=== PATIENT | female | born 1950 | race Hispanic/Latino ===

== ENCOUNTER 2021-07-17 22:07 | Inpatient (IN) | payer OTHER ==
--- OUTSIDE RECORDS SUMMARY | 2021-07-17 22:51 | XMS REPORT | Continuity of Care Document ---
:1950 Author Organization [facility] t Address [address] [place] [address] Dr. Fu [address] [place] [address] Care Team Providers Name Role Phone GC_SWHATBIC_Black_D Attending Clinician Unavailable GC_SWHAOMC_Black_D Attending Clinician Unavailable JOSE LUIS Attending Clinician Unavailable Ren Couch NP Attending Clinician Ren COUCH Attending Clinician Unavailable GC_SWHATBIC_Black_D Admitting Clinician Unavailable GC_SWHAOMC_Black_D Admitting Clinician Unavailable Payers Payer Name Policy Type Policy Number Effective Date Expiration Date [facility] [id number] 2011 00:00:00 Problems This patient has no known problems. Allergies, Adverse Reactions, Alerts Allergy Allergy Status Severity Reaction(s) Onset Inactive Treating Comm ents Source Name Type Date Date Clinician NO KNOWN Drug Active Univers ALLERGIE Class ity of [facility] Social History Social Habit Start Date Stop Date Quantity Comments Source Sex Assigned At Uni [facility] to SARS-CoV-2 [facility] sure [facility] Smoking Status Start Date Stop Date Source Unknown if ever smoked Universit y [facility] Medications This patient has no known medications. Procedures Procedure Date / Time Performed Performing Clinician Sourc e NOTICE OF PRIVACY 2020-01-15 05:39:54 Doctor Unassigned, No Univ [facility] NOTICE OF PRIVACY 2020-01-15 05:36:35 Doctor Unassigned, No Univ [facility] Encounters Start End Encounter Admission Attending Care Care Encounter Source Date/Time Date/Time Type Type Clinicians Facility Department ID 2021-05-06 2021-05-06 Outpatient GC_SWHATBIC PRIV PRIV [id number] [facility] 03:29:00 03:29:00 _Black_D [id number] Medic al 2021-05-05 2021-05-05 Outpatient GC_SWHAOMC_ PRIV PRIV [id number] [facility] 12:43:00 12:43:00 Black_D [id number] Medica l 2021-05-03 2021-05-03 Outpatient GC_SWHATBIC PRIV PRIV [id number] [facility] 02:06:00 02:06:00 _Black_D [id number] Medic al 2021-05-02 2021-05-02 Outpatient GC_SWHAOMC_ PRIV PRIV [id number] [facility] 12:18:00 12:18:00 Black_D [id number] Medica l 2021-04-30 2021-04-30 Outpatient GC_SWHATBIC PRIV PRIV [id number] [facility] 01:46:00 01:46:00 _Black_D [id number] Medic al 2020-01-23 2020-01-23 Outpatient JOSE LUIS, [facility] [id number] [address] [place] [address] 00:00:00 00:00:00 GERTRUDE 031 Method i 2020-01-23 2020-01-23 Outpatient JOSE LUIS [facility] [id number] [address] [place] [address] 00:00:00 00:00:00 GERTRUDE 674 Method i 2020-01-23 2020-01-23 Outpatient JOSE LUIS [facility] [id number] [address] [place] [address] 00:00:00 00:00:00 GERTRUDE [address] 2020-01-15 2020-01-15 Emergency [facility] [id number] Univers 00:56:00 01:23:00 Rodney Zuniga [id number] camilo [facility] [id number] [place] [facility] [id number] [facility] 0[address] Branch 2020-01-15 2020-01-15 Emergency X [facility] ERT [id number] Univers 00:38:00 00:38:[address] [facility] Results This patient has no known results.
[2021-07-17] MEDS ORDERED: ACETAMINOPHEN 500 MG TAB PO PRN (23:09)
[2021-07-17] MEDS ORDERED: ONDANSETRON 4 MG/2 ML VIAL IV PRN (23:09)
[2021-07-17] MEDS ORDERED: ZOLPIDEM TARTRATE 5 MG TABLET PO PRN (23:09)
[2021-07-17] MEDS ORDERED: HYDROCODONE/CHLORPHEN 5 ML/OSYR PO PRN (23:35)
[2021-07-17] MEDS ORDERED: METOPROLOL TAR 25 MG TAB PO ONE (23:37)
--- NOTE | 2021-07-17 23:40 | P.HP ---
Certification for Inpatient Patient admitted to: Observation With expected LOS: <2 Midnights Patient will require the following post-hospital care: None Practitioner: I am a practitioner with admitting privileges, knowledge of patient current condition, hospital course, and medical plan of care. Services: Services provided to patient in accordance with Admission requirements found in Title 42 Section 412.3 of the Code of Federal Regulations Patient History Date of Service: 07/17/21 Primary Care Provider: Cory (patient requested hospitalist) Reason for admission: Chest Pain History of Present Illness: Patient is a 71-year-old female with hypothyroidism, hypertension, and asthma who presented to the [facility] ED with complaints of cough and shortness of breath. She states that she has had a cough for the last 3 months, has had several Covid/flu tests that were all negative and been on several different antibiotics without resolution in symptoms. Chest x-ray was done and showed moderate pulmonary congestion without cardiopulmonary disease. CTA was normal. EKG NSR. Labs significant for troponin I of 0.1, WBC 11.1, BNP within normal limits. She was given duo nebs, 324 mg of aspirin, 100 mg of Lovenox, 40 of Lasix, 0.5 Ativan. [facility] provider requested transfer to [facility] and I accepted. Upon arrival to the floor, patient states she is feeling better after the breathing treatment and Lasix. She states that she was experiencing some chest pain at the [facility] ED. She does see a plumber helper and had a echo and stress test last summer that she states were normal. She denies a history of [place]. She states that she was recently diagnosed with hypothyroidism and started on Hansen. Plan to repeat cardiac enzymes here and monitor patient on telemetry overnight with cardiology consulting in the morning. Allergies Codeine Allergy (Uncoded 03/12/15 10:32) Unknown Home medications list reviewed: Yes - Past Medical/Surgical History Diabetic: No -: Hypertension -: Hypothyroidism -: Asthma Past Surgical History: Patient denies surgical history Psychosocial/ Personal History: Patient lives at home with her . - Family History Mother -: Diabetes, Cancer - Social History Smoking Status: Never smoker Alcohol use: No CD- Drugs: No Caffeine use: Yes Place of Residence: Home Review of Systems Respiratory: Cough, Shortness of Breath Cardiovascular: Chest Pain Physical Examination - Physical Exam General: Alert, In no apparent distress, Oriented x3, Obese HEENT: Atraumatic, PERRLA, Mucous membr. moist/pink, EOMI, Sclerae nonicteric Neck: Supple, 2+ carotid pulse no bruit, No LAD, Without JVD or thyroid abnormality Respiratory: Clear to auscultation bilaterally, Normal air movement Cardiovascular: No edema, Regular rate/rhythm, Normal S1 S2 Gastrointestinal: Normal bowel sounds, No tenderness Musculoskeletal: No tenderness Integumentary: No rashes Neurological: Normal speech, Normal strength at 5/5 x4 extr, Normal tone, Normal affect Assessment and Plan - Problems (Diagnosis) (1) Chest pain Current Visit: Yes Status: Acute Qualifiers: Chest pain type: unspecified Qualified Code(s): R07.9 - Chest pain, unspecified (2) Elevated troponin I level Current Visit: Yes Status: Acute (3) Shortness of breath Current Visit: Yes Status: Acute (4) Hypertension Current Visit: Yes Status: Acute Qualifiers: Hypertension type: primary hypertension Qualified Code(s): I10 - Essential (primary) hypertension (5) Hypothyroidism Current Visit: Yes Status: Acute Qualifiers: Hypothyroidism type: acquired Qualified Code(s): E03.9 - Hypothyroidism, unspecified - Plan -We will admit patient for observation and monitor on telemetry overnight -Troponin I at external facility was elevated at 0.1. Will repeat troponin high-sensitivity here x3 q6 hours along with CPK and CK-MB. -EKG and CTA from outside facility negative. -Patient given 324 of aspirin and 100 of Lovenox at [facility] ED. Atorvastatin and metoprolol ordered. -Echo and lipid panel ordered for the morning. Cardiology consult. N.p.o. in case of cardiac catheterization -Patient's main complaint was cough and shortness of breath. We will continue breathing treatments and antitussives as needed. -Patient has a recent diagnosis of hypothyroidism, medication could be contributing chest pain. Will check thyroid levels in the morning -Full code Discharge Plan: Home Plan to discharge in: 24 Hours - Advance Directives Does patient have a Living Will: No Does patient have a Durable POA for Healthcare: No - Code Status/Comfort Care Code Status Assessed: Yes (Full) Critical Care: No Time Spent Managing Pts Care (In Minutes): 70
[2021-07-18 00:15] LABS: Creatine Phosphokinase 46 U/L (26-192); Troponin High Sensitivity 9.4 pg/mL (<58.9)
[2021-07-18 00:24] LABS: CKMB Creatine Kinase MB < 1.0 ng/mL (1.0-3.6)
[2021-07-18] MEDS: ATORVASTATIN 40 MG TAB PO SCH ×2 (00:25→21:02)
[2021-07-18] MEDS: ZOLPIDEM TARTRATE 5 MG TABLET PO PRN ×2 (00:25→22:46)
[2021-07-18 04:11] LABS: Absolute Lymphocytes (CBC) 3.9 K/uL (0.7-4.9); Hematocrit 38.6 % (36.0-45.0); Lymphocytes % 29.7 % (15.3-44.8)
[2021-07-18 04:28] LABS: Creatine Phosphokinase 41 U/L (26-192)
[2021-07-18 04:31] LABS: CKMB Creatine Kinase MB < 1.0 ng/mL (1.0-3.6)
[2021-07-18 04:36] LABS: Bilirubin Total 0.6 mg/dL (0.2-1.0); Magnesium 1.9 mg/dL (1.8-2.4); Phosphorus 3.2 mg/dL (2.5-4.9); Potassium 3.6 mmol/L (3.5-5.1); Protein, Total 6.8 g/dL (6.4-8.2)
[2021-07-18 04:49] LABS: Thyroid Stimulating Hormone 5.46 uIU/mL (0.360-3.740)
[2021-07-18 05:33] LABS: Urine Appearance CLEAR (Clear); Urine Bilirubin NEGATIVE (Negative); Urine Blood NEGATIVE (Negative); Urine Color YELLOW (Yellow); Urine Glucose NEGATIVE (Negative); Urine Protein NEGATIVE (Negative); Urine Specific Gravity >=1.030 (1.005-1.030); Urine Urobilinogen 0.2 mg/dL (0.2-1.0); Urine pH 5.5 (5.0-7.0)
[2021-07-18 05:34] LABS: Urine Microscopic Reflex NO UMIC
[2021-07-18] MEDS: INSULIN -REGULAR HUMAN 50 UNIT/0.5 ML ML SQ SCH ×4 (07:30→21:06)
[2021-07-18] MEDS: ENOXAPARIN 40 MG/0.4 ML SQ SCH (09:46)
--- NOTE | 2021-07-18 12:40 | P.PN ---
Subjective Date of Service: 07/18/21 Primary Care Provider: Cory (patient requested hospitalist) Chief Complaint: Chest Pain Patient states she feels better today. She is still coughing intermittently and reports shortness of breath with exertion. Physical Examination - Vital Signs Temperature: 97.9 F Blood Pressure: 132/62 Pulse: 75 Respirations: 16 Pulse Ox (%): 97 - Physical Exam General: Alert, In no apparent distress, Oriented x3 HEENT: Mucous membr. moist/pink Neck: Supple, JVD not distended Respiratory: Clear to auscultation bilaterally, Normal air movement Cardiovascular: No edema, Regular rate/rhythm, Normal S1 S2 Gastrointestinal: Soft and benign, Non-distended, No tenderness Musculoskeletal: No swelling Integumentary: No rashes, No cyanosis Neurological: Normal strength at 5/5 x4 extr, Cranial nerves 3-12 intact - Studies Laboratory Data (last 24 hrs) 07/18/21 03:33: Sodium 137, Potassium 3.6, BUN 12, Creatinine 0.86, Glucose 155 H, Phosphorus 3.2, Magnesium 1.9, Total Bilirubin 0.6, AST 32, ALT 52, Alkaline Phosphatase 90, Triglycerides 166 H, Cholesterol 144, HDL Cholesterol 39 L, Cholesterol/HDL Ratio 3.69 07/18/21 03:33: WBC 13.0 H, Hgb 13.3, Hct 38.6, Plt Count 237 Assessment And Plan - Current Problems (Diagnosis) (1) Acute bronchitis Current Visit: Yes Status: Acute (2) Shortness of breath Current Visit: Yes Status: Acute (3) Reactive airway disease with acute exacerbation Current Visit: Yes Status: Acute - Plan Continue bronchodilators. Start oral prednisone Trial of IV Lasix. Echocardiogram on Tuesday No need for antibiotics at this time. Patient symptoms have not responded to multiple antibiotics. Continue other home medications.
[2021-07-18] MEDS: ALBUTEROL 2.5 MG/3 ML NEB SOL NEB PRN ×2 (13:12→20:30)
[2021-07-18] MEDS: predniSONE 20 MG TAB PO SCH (13:52)
[2021-07-18] MEDS: FUROSEMIDE 40 MG/4 ML VIAL IV SCH (13:53)
[2021-07-18 15:10] LABS: Creatine Phosphokinase 52 U/L (26-192)
[2021-07-18 15:18] LABS: CKMB Creatine Kinase MB < 1.0 ng/mL (1.0-3.6)
--- NOTE | 2021-07-18 22:51 | CON ---
Date of Consultation: 07/18/[address] Harmon on 07/17/2021. I saw the patient on 07/18/2021. Reason For Consultation: [id number] myocardial infarction. History Of Present Illness: Ms. Kulwant Robles, 71 years old, had seen Dr. Yap in [place] and had a ca theterization about a year ago, which was apparently unremarkable. At this time, she comes in with c ough, shortness of breath, chest tightness, abnormal troponin. Chest x-ray showed new onset congesti ve heart failure. The patient has improved on Lasix. She is on Singulair, Ambien, and a thyroid at home. She was on CPAP at home for sleep apnea. She denied any nausea, vomiting, diaphoresis. Has h ad PND, orthopnea. Denied any pedal edema, palpitation, fever, chills, or syncope. Past Medical History: Includes asthma, sleep apnea, and hypothyroidism. Medications: Listed earlier. Allergies: SHE IS ALLERGIC TO CODEINE. Review of Systems: Negative. Social History: Negative. Family History: Negative. Physical Examination: Vital Signs: Stable. Afebrile. HEENT: Negative. Neck: Supple with no bruit. Chest: Clear on the right. On the left, she has some rales. Cardiac: Exam revealed a regular rhythm and rate without any murmurs, gallops, or rubs. Abdomen: Benign. Extremities: Revealed trace edema. Diagnostic Data: Showed a white count of 13,000, glucose of 155. EKG is nonspecific. Chest x-ray s howed pulmonary edema. Impression And Plan: New onset congestive heart failure probably diastolic with elevated troponin co nsistent with non-ST elevation myocardial infarction. I think the patient needs to have an echocardi ogram. I think she needs to have a heart catheterization to define her coronary anatomy. The risks and the benefits of the procedure were discussed with her. She agreed to proceed. Her other problem s including sleep apnea, hypothyroidism, and asthma seem to be stable at this point. I will discuss the case further with Dr. Harmon. I think she can go home and I will set her up for an outpatient ca theterization in the next few days. MEKHI/MONIL Voice ID: [id number] Report ID: [id number]
[2021-07-18 23:05] VITALS: BMI 41.7
[2021-07-19 06:13] LABS: Absolute Lymphocytes (CBC) 3.5 K/uL (0.7-4.9); Hematocrit 38.7 % (36.0-45.0); Lymphocytes % 25.9 % (15.3-44.8); MPV 8.9 fL (7.6-11.3); RBC Red Blood Cell Count 4.22 M/uL (3.86-4.86)
[2021-07-19 06:35] LABS: Potassium 3.7 mmol/L (3.5-5.1)
[2021-07-19] MEDS: INSULIN -REGULAR HUMAN 50 UNIT/0.5 ML ML SQ SCH ×4 (07:30→21:19)
[2021-07-19] MEDS: FUROSEMIDE 40 MG/4 ML VIAL IV SCH (09:12)
[2021-07-19] MEDS: predniSONE 20 MG TAB PO SCH (09:12)
[2021-07-19] MEDS: ENOXAPARIN 40 MG/0.4 ML SQ SCH (09:13)
--- NOTE | 2021-07-19 12:50 | P.PN ---
Subjective Date of Service: 07/19/21 Primary Care Provider: Cory (patient requested hospitalist) Chief Complaint: Chest Pain Patient states she is gradually getting better She reports persistent cough and shortness of breath with exertion. Physical Examination - Vital Signs Temperature: 97.6 F Blood Pressure: 134/61 Pulse: 71 Respirations: 14 Pulse Ox (%): 95 - Physical Exam General: Alert, In no apparent distress, Oriented x3 HEENT: Mucous membr. moist/pink Neck: JVD not distended Respiratory: Normal air movement, Other (Mild bilateral crackles) Cardiovascular: No edema, Regular rate/rhythm, Normal S1 S2 Gastrointestinal: Normal bowel sounds, Soft and benign, Non-distended, No tenderness Musculoskeletal: No swelling, No tenderness Integumentary: No rashes, No erythema Neurological: Normal strength at 5/5 x4 extr - Studies Laboratory Data (last 24 hrs) 07/19/21 05:14: Sodium 139, Potassium 3.7, BUN 17, Creatinine 0.85, Glucose 148 H 07/19/21 05:14: WBC 13.6 H, Hgb 13.1, Hct 38.7, Plt Count 243 Assessment And Plan - Current Problems (Diagnosis) (1) Acute bronchitis Current Visit: Yes Status: Acute (2) Shortness of breath Current Visit: Yes Status: Acute (3) Reactive airway disease with acute exacerbation Current Visit: Yes Status: Acute - Plan Continue bronchodilators. Continue oral prednisone Continue IV Lasix. Echocardiogram on Tuesday No need for antibiotics at this time. Patient symptoms have not responded to multiple antibiotics. Continue other home medications. Activity as tolerated.
[2021-07-19] MEDS: ALBUTEROL 2.5 MG/3 ML NEB SOL NEB PRN (18:32)
[2021-07-19] MEDS: ATORVASTATIN 40 MG TAB PO SCH (21:19)
[2021-07-19] MEDS: ZOLPIDEM TARTRATE 5 MG TABLET PO PRN (21:23)
[2021-07-20 03:56] LABS: Absolute Lymphocytes (CBC) 4.7 K/uL (0.7-4.9); Hematocrit 38.7 % (36.0-45.0); Lymphocytes % 33.1 % (15.3-44.8); MPV 8.5 fL (7.6-11.3); RBC Red Blood Cell Count 4.27 M/uL (3.86-4.86)
[2021-07-20 04:23] LABS: Potassium 3.7 mmol/L (3.5-5.1)
[2021-07-20] MEDS: INSULIN -REGULAR HUMAN 50 UNIT/0.5 ML ML SQ SCH ×2 (07:30→11:30)
[2021-07-20 08:38] VITALS: TEMP 97.6
[2021-07-20] MEDS: FUROSEMIDE 40 MG/4 ML VIAL IV SCH (09:00)
[2021-07-20] MEDS: ENOXAPARIN 40 MG/0.4 ML SQ SCH (09:00)
[2021-07-20] MEDS: predniSONE 20 MG TAB PO SCH (09:00)
[2021-07-20] MEDS ORDERED: LIDOCAINE 1% 20 ML MDV ONE ×2 (09:53→10:27)
[2021-07-20] MEDS ORDERED: HEPA 1000U/500MLS 1,000 UNIT/500 ML BAG IV ONE ×2 (09:53→10:27)
[2021-07-20 10:16] LABS: Protime INR 1.14
[2021-07-20] MEDS ORDERED: FENTANYL CITR 100 MCG/2 ML ONE (10:28)
[2021-07-20] MEDS ORDERED: MIDAZOLAM HCL 2 MG/2 ML INJ ONE ×2 (10:28→11:04)
[2021-07-20] MEDS ORDERED: NITROGLYCERIN/D5W 25 MG/250 ML BTL IV ONE (10:30)
[2021-07-20] MEDS ORDERED: NA CHLORIDE 0.9% 0 ML ONE (10:30)
[2021-07-20] MEDS ORDERED: NA CHLORIDE 0.9% 500 ML ONE (10:42)
[2021-07-20 12:08] VITALS: O2SAT 96
--- NOTE | 2021-07-20 13:19 | P.DS ---
Admission Date: 07/18/21 Discharge Date: 07/20/21 Primary Care Provider: Cory (patient requested hospitalist) Disposition: ROUTINE DISCHARGE Discharge Condition: FAIR Reason for Admission: Chest Pain - Problems (1) Acute bronchitis Current Visit: Yes Status: Acute (2) Shortness of breath Current Visit: Yes Status: Acute (3) Reactive airway disease with acute exacerbation Current Visit: Yes Status: Acute Brief History of Present Illness: Patient is a 71-year-old female with hypothyroidism, hypertension, and asthma who presented to the [place] ED with complaints of cough and shortness of breath. She states that she has had a cough for the last 3 months, has had several Covid/flu tests that were all negative and been on several different antibiotics without resolution in symptoms. Chest x-ray was done and showed moderate pulmonary congestion without cardiopulmonary disease. CTA was normal. EKG NSR. Labs significant for troponin I of 0.1, WBC 11.1, BNP within normal l imits. She was given duo nebs, 324 mg of aspirin, 100 mg of Lovenox, 40 of Lasix, 0.5 Ativan. Patient was subsequently transferred to [facility] to be admitted. Patient reported some improvement with the bronchodilators and Lasix. She does see a brass molder helper and had a echo and stress test last summer that she states were normal. She denies a history of [place]. She states that she was recently diagnosed with hypothyroidism and started on [place]. Patient admitted for further management. Hospital Course: She was admitted to the medical floor and treated for COPD/bronchitis with IV steroid, bronchodilators. She was also treated for possible CHF with IV Lasix. Patient symptoms improved with these measures. She was seen in consultation by cardiology-Dr. Brito, echocardiogram was done and cardiac catheterization done today which showed normal coronary arteries. Dr. Brito suspect patient has diastolic heart failure and recommended maintenance Lasix therapy and low-dose beta-kt. Patient has clinically improved and deemed stable for discharge. He is discharged with a short course of prednisone therapy, Lasix and Coreg. Vital Signs/Physical Exam: Temp Pulse Resp BP Pulse Ox 97.6 F 71 16 128/55 L 95 07/20/21 08:00 07/20/21 12:07 07/20/21 12:07 07/20/21 12:07 07/20/21 08:00 General: Alert, In no apparent distress, Oriented x3 HEENT: Mucous membr. moist/pink Neck: JVD not distended Respiratory: Clear to auscultation bilaterally, Normal air movement Cardiovascular: No edema, Regular rate/rhythm, Normal S1 S2, No murmurs Gastrointestinal: Soft and benign, Non-distended Musculoskeletal: No swelling, No tenderness Integumentary: No rashes Neurological: Normal strength at 5/5 x4 extr Laboratory Data at Discharge: WBC 14.1 K/uL (4.3-10.9) H 07/20/21 03:32 Hgb 13.3 g/dL (12.0-15.0) 07/20/21 03:32 Hct 38.7 % (36.0-45.0) 07/20/21 03:32 Plt Count 251 K/uL (152-406) 07/20/21 03:32 PT 12.6 SECONDS (9.5-12.5) H 07/20/21 09:51 INR 1.14 07/20/21 09:51 APTT 27.8 SECONDS (24.3-36.9) 07/20/21 09:51 Sodium 142 mmol/L (136-145) 07/20/21 03:32 Potassium 3.7 mmol/L (3.5-5.1) 07/20/21 03:32 BUN 19 mg/dL (7-18) H 07/20/21 03:32 Creatinine 0.83 mg/dL (0.55-1.3) 07/20/21 03:32 Glucose 106 mg/dL (74-106) 07/20/21 03:32 Phosphorus 3.2 mg/dL (2.5-4.9) 07/18/21 03:33 Magnesium 1.9 mg/dL (1.8-2.4) 07/18/21 03:33 Total Bilirubin 0.6 mg/dL (0.2-1.0) 07/18/21 03:33 AST 32 U/L (15-37) 07/18/21 03:33 ALT 52 U/L (12-78) 07/18/21 03:33 Alkaline Phosphatase 90 U/L (45-117) 07/18/21 03:33 Triglycerides 166 mg/dL (<150) H 07/18/21 03:33 Cholesterol 144 mg/dL (<200) 07/18/21 03:33 HDL Cholesterol 39 mg/dL (40-60) L 07/18/21 03:33 Cholesterol/HDL Ratio 3.69 07/18/21 03:33 Home Medications: Montelukast Sodium 1 tab PO DAILY 07/17/21 Thyroid,Pork [[place] Thyroid] 30 mg PO DAILY 07/17/21 Zolpidem Tartrate [Ambien] 10 mg PO BEDTIME 07/17/21 Aspirin [Aspirin EC 81 MG] 81 mg PO DAILY #30 tablet. 07/20/21 Furosemide [Lasix] 20 mg PO DAILY #30 tab 07/20/21 Ipratropium/Albuterol Sulfate [Iprat-Albut 0.5-3(2.5) mg/3 ml] 3 ml NEB Q6H PRN #120 ampul.neb 07/20/21 carvediloL [Coreg] 3.125 mg PO DAILY #30 tab 07/20/21 predniSONE [Prednisone*] 20 mg PO DAILY #5 tab 07/20/21 New Medications: Aspirin [Aspirin EC 81 MG] 81 mg PO DAILY #30 tablet. carvediloL [Coreg] 3.125 mg PO DAILY #30 tab Ipratropium/Albuterol Sulfate [Iprat-Albut 0.5-3(2.5) mg/3 ml] 3 ml NEB Q6H PRN #120 ampul.neb PRN Reason: Shortness Of Breath Furosemide [Lasix] 20 mg PO DAILY #30 tab predniSONE [Prednisone*] 20 mg PO DAILY #5 tab Diet: AHA Activity: Ad gissel Followup: hCan Brito MD [ACTIVE - CAN ADMIT] - (Within 1 month) Time spent managing pt's care (in minutes): 36
[2021-07-20 13:29] VITALS: BP 122/64
--- NOTE | 2021-07-20 13:41 | ECHO ---
HEIGHT: 5 ft 1 in WEIGHT: 221 lb 0 oz DATE OF STUDY: 07/20/[address]: Sierra Vanessa 2-DIMENSIONAL: YES M.MODE: YES DOPPLER: YES COLOR FLOW: YES TDS: PORTABLE: YES DEFINITY: BUBBLE STUDY: DIAGNOSIS: CHEST PAIN, ELEVATED TROPONIN CARDIAC HISTORY: CATHERIZATION: NO SURGERY: NO PROSTHETIC VALVE: NO PACEMAKER: NO MEASUREMENTS (cm) DIASTOLIC (NORMALS) SYSTOLIC (NORMALS) IVSd 1.0 (0.6-1.2) LA Diam 2.7 (1.9-4.0) LVEF 55% LVIDd 4.2 (3.5-5.7) LVIDs 3.0 (2.0-3.5) %FS 28% LVPWd 1.1 (0.6-1.2) Ao Diam 2.4 (2.0-3.7) 2 DIMENSIONAL ASSESSMENT: RIGHT ATRIUM: NORMAL LEFT ATRIUM: NORMAL RIGHT VENTRICLE: NORMAL LEFT VENTRICLE: NORMAL TRICUSPID VALVE: NORMAL MITRAL VALVE: MILD MITRAL REGURGITATION PULMONIC VALVE: NORMAL AORTIC VALVE: NORMAL PERICARDIAL EFFUSION: NONE AORTIC ROOT: NORMAL LEFT VENTRICULAR WALL MOTION: UNABLE TO EVALUATE DUE TO POOR WINDOWS DOPPLER/COLOR FLOW: SEE BELOW COMMENTS: POOR WINDOWS, OVERALL LEFT VENTRICULAR EJECTION FRACTION IS NORMAL 55-60%. MILD MITRAL TRICUSPID REGURGITATION. UNABLE TO EVALUATE WALL MOTION DUE TO POOR WINDOWS. TECHNOLOGIST: MAHNAZ HUTCHINSON
--- NOTE | 2021-07-20 23:03 | OP ---
Date of Procedure: 07/20/2021 Surgeon: Chan Brito MD Floor Specialist: Ms. Shazia Haney. Total conscious sedation time was 45 minutes. Procedure: Left heart catheterization, selective coronary arteriogram, left ventriculogram with left ventricular end-diastolic pressure measurement. Indication: Chest pain, abnormal troponin, shortness of breath. Mrs. Blum, 71, was admitted by Dr. Harmon on 07/18/2021 with shortness of breath, chest pressure, positive troponin. Procedure In Detail: The patient was brought to the [facility] today as an inpatient, prepped and drap ed in routine sterile fashion, given Versed and fentanyl for sedation. A 6-Bruneian sheath was introdu tavares in the right common femoral artery successfully using Seldinger technique and 10 cc of xylocaine. Steven catheter left and right were used to cannulate the left main and right main respectively. She was definitely right dominant. Her left main was normal. LAD was normal. Circumflex was very s mall and nondominant. RCA was large and dominant. A pigtail catheter was used to do the left ventri culogram. She had a normal ejection fraction. Left ventricular end-diastolic pressure was 15 mmHg. There was no mitral regurgitation. There were no complications. The patient tolerated the procedur e well. Blood Loss: 5 mL. Postoperative Diagnosis: Chest pain, shortness of breath. Positive troponin with normal coronaries. This is possibly a diastolic congestive heart failure situation. Plan: Continue medical therapy. The patient had an Angio-Seal done for closure of her right groin e ntry site. It was uneventful. She will have bedrest for 2 hours, after which she can go home. I will see her in the office in 2 weeks. MEKHI/ROEL Voice ID: [id number] Report ID: [id number]
== END 2021-07-20 14:17 | disposition home or self-care (01) | DRG 286 ==
LOC: 2ND 22:48 → OBSVTOIN 07-18 18:22
PROVIDERS: ADMIT Internal Medicine; ATTEND Internal Medicine
PROC: B201YZZ Plain Radiography of Multiple Coronary Arteries using Other Contrast (ICD-10-PCS; principal; 2021-07-20)
PROC: 4A023N7 Measurement of Cardiac Sampling and Pressure, Left Heart, Percutaneous Approach (ICD-10-PCS; 2021-07-20)
DX: I11.0 Hypertensive heart disease with heart failure (principal); I50.31 Acute diastolic (congestive) heart failure; J45.901 Unspecified asthma with (acute) exacerbation; J44.1 Chronic obstructive pulmonary disease with (acute) exacerbation; E03.9 Hypothyroidism, unspecified; R77.8 Other specified abnormalities of plasma proteins; G47.30 Sleep apnea, unspecified; Z20.822 Contact with and (suspected) exposure to COVID-19
CPT/HCPCS: 36415; 80048; 80053; 80061; 81003; 82550; 82553; 82947; 83735; 83880; 84100; 84439; 84443; 84484; 85025; 85610; 85730; 93306; 93458; C1760; C1893; G0269; G0378; G0379; J0583; J1644; J1650; J1815; J1940; J2250; J3010; J7040; J7512; Q9967; U0003